=== PATIENT | female | born 1995 | race Caucasian/White ===

== ENCOUNTER 2020-01-06 16:54 | Emergency (ER) | payer OTHER ==
--- NOTE | 2020-01-06 17:47 | ER Document Report ---
ED Medical Screen (RME) - General Stated Complaint: VAGINAL BLEEDING/POS PREG Time Seen by Provider: 01/06/20 17:39 Mode of Arrival: Ambulatory Information source: Patient Notes: HPI; 24-year-old female who states she is unsure of how far along complaining of vaginal spotting for the past 5 days. States she saw her VISITING PROFESSOR on December 26 confirmed with ultrasound but was told there was no heartbeat. She has not followed up since because they were giving her options to what to do about the that she was not happy with. She is a 1. LMP 10/04/2019 denies any abdominal pain. States the spotting is intermittent. PE: Alert and oriented x3, no acute distress, lungs clear to auscultation without rales, rhonchi, or wheezes. Heart: Regular rate rhythm without murmurs, rubs, gallops. Abdomen: Soft, nontender, no guarding, no rebound, no organomegaly, positive bowel sounds x4. I have greeted and performed a rapid initial assessment of this patient. A comprehensive ED assessment and evaluation of the patient, analysis of test results and completion of the medical decision making process will be conducted by additional ED providers. I have specifically instructed the patient or family members with the patient to immediately return to any nursing staff should anything change in the patient's condition or with their chief complaint. - Related Data Allergies/Adverse Reactions: No Known Allergies Allergy (Verified 01/06/20 17:38) Home Medications: , vit D Past Medical History - Social History Frequency of alcohol use: None Drug Abuse: None Physical Exam - Vital signs Vitals: Temp 98.2 F 01/06/20 16:55 Course - Vital Signs Vital signs: Temp Pulse Resp BP Pulse Ox 98.2 F 86 18 128/69 H 100 01/06/20 16:59 01/06/20 16:59 01/06/20 16:59 01/06/20 16:59 01/06/20 16:59
[2020-01-06 18:03] LABS: ABSOLUTE EOSINOPHILS # (AUTO) 0.2 10^3/uL (0.0-0.6); ABSOLUTE LYMPHOCYTES (AUTO) 2.4 10^3/uL (0.5-4.7); ABSOLUTE MONOCYTES (AUTO) 0.7 10^3/uL (0.1-1.4); ABSOLUTE NEUT (AUTO) 6.3 10^3/uL (1.7-8.2); BASOPHILS % (AUTO) 0.5 % (0-2); EOSINOPHILS % (AUTO) 2.2 % (0-6); HEMATOCRIT 40.9 % (36.0-47.0); HEMOGLOBIN 14.3 g/dL (12.0-15.5); LYMPHOCYTES % (AUTO) 24.4 % (13-45); MEAN CORPUSCULAR HEMOGLOBIN 31.5 pg (27.0-33.4); MEAN CORPUSCULAR HGB CONC 34.9 g/dL (32.0-36.0); MEAN CORPUSCULAR VOLUME 90 fl (80-97); MONOCYTES % (AUTO) 7.2 % (3-13); PLATELET COUNT 318 10^3/uL (150-450); RED BLOOD COUNT 4.53 10^6/uL (3.72-5.28); RED CELL DISTRIBUTION WIDTH 13.3 % (11.5-14.0); SEGMENTED NEUTROPHILS % (AUTO) 65.7 % (42-78); TOTAL CELLS COUNTED % (AUTO) 100 %; WHITE BLOOD COUNT 9.7 10^3/uL (4.0-10.5)
[2020-01-06 18:07] LABS: APPEARANCE,URINE CLEAR; BILIRUBIN,URINE NEGATIVE (NEGATIVE); COLOR,URINE STRAW; GLUCOSE, URINE NEGATIVE (NEGATIVE); KETONES,URINE NEGATIVE (NEGATIVE); LEUKOCYTE ESTERASE,URINE TRACE (NEGATIVE); NITRITE,URINE NEGATIVE (NEGATIVE); PROTEIN,URINE NEGATIVE (NEGATIVE); URINE SPECIFIC GRAVITY 1.009; UROBILINOGEN,URINE NEGATIVE mg/dL (<2.0)
[2020-01-06 18:25] LABS: ALBUMIN 4.9 g/dL (3.5-5.0); ALKALINE PHOSPHATASE 59 U/L (38-126); ANION GAP 10 (5-19); ASPARTATE AMINO TRANSFERASE 29 U/L (14-36); BILIRUBIN,TOTAL 0.4 mg/dL (0.2-1.3); BLOOD UREA NITROGEN 6 mg/dL (7-20); CALCIUM 9.8 mg/dL (8.4-10.2); CARBON DIOXIDE 26 mmol/L (22-30); CHLORIDE 101 mmol/L (98-107); GLUCOSE 84 mg/dL (75-110); POTASSIUM 3.8 mmol/L (3.6-5.0); TOTAL PROTEIN 8.1 g/dL (6.3-8.2)
--- NOTE | 2020-01-06 19:06 | ER Document Report ---
ED General - General Chief Complaint: Vag Bleeding, +preg <12wks Stated Complaint: VAGINAL BLEEDING/POS PREG Time Seen by Provider: 01/06/20 17:39 Primary Care Provider: NADIR ZARAGOZA MD [ACTIVE PROVISIONAL STAFF] - Follow up as needed Mode of Arrival: Ambulatory Information source: Patient TRAVEL OUTSIDE OF THE [place] IN LAST 30 DAYS: No - HPI Onset: Other - over the last 4 days Onset/Duration: Gradual Quality of pain: No pain Severity: Mild Pain Level: Denies Associated symptoms: Other - vaginal bleeding/spotting Exacerbated by: Denies Relieved by: Denies Similar symptoms previously: No Recently seen / treated by doctor: No Notes: 24 year old female who is about 10 weeks by ultrasound ([place] here in the ER for vaginal bleeding/spotting for the last 4 days. The patient denies abdominal pains, pelvic pains, nausea, vomiting, fevers, chills, sweats. The patient tells me she had an ultrasound 2 weeks ago and was told she was 8 weeks then but that no heart beat could be seen. The patient has not followed up since then. - Related Data Allergies/Adverse Reactions: No Known Allergies Allergy (Verified 01/06/20 17:38) Home Medications: , vit D Past Medical History - General Information source: Patient - Social History Smoking Status: Never Smoker Frequency of alcohol use: None Drug Abuse: None Lives with: Spouse/Significant other Family History: Reviewed & Not Pertinent Patient has suicidal ideation: No Patient has homicidal ideation: No Review of Systems - Review of Systems Constitutional: No symptoms reported EENT: No symptoms reported Cardiovascular: No symptoms reported Respiratory: No symptoms reported Gastrointestinal: No symptoms reported Genitourinary: No symptoms reported Female Genitourinary: No symptoms reported, , Vaginal bleeding Musculoskeletal: No symptoms reported Skin: No symptoms reported Hematologic/Lymphatic: No symptoms reported Neurological/Psychological: No symptoms reported -: Yes All other systems reviewed and negative Physical Exam - Vital signs Vitals: Temp 98.2 F 01/06/20 16:55 - Notes Notes: GENERAL: Well-appearing, well-nourished and in no acute distress. HEAD: Atraumatic, normocephalic. EYES: Pupils equal round and reactive to light, extraocular movements intact, sclera anicteric, conjunctiva are normal. ENT: External ears normal, nares patent, oropharynx clear without exudates. Moist mucous membranes. NECK: Normal range of motion, supple without lymphadenopathy or JVD. LUNGS: Breath sounds clear to auscultation bilaterally and equal. No wheezes rales or rhonchi. HEART: Regular rate and rhythm without murmurs, rubs or gallops. ABDOMEN: Soft, nontender, normoactive bowel sounds. No guarding, no rebound. No masses appreciated. : Os closed but there is blood and mucus like material coming from Os. No CMT or adenexal tenderness EXTREMITIES: Normal range of motion, no pitting or edema. No clubbing or cyanosis. NEUROLOGICAL: Cranial nerves II through XII grossly intact. Normal speech, normal gait. PSYCH: Normal mood, normal affect. SKIN: Warm, Dry, normal turgor, no rashes or lesions noted. Course - Re-evaluation Re-evalutation: 01/06/20 19:11 Patient's Beta HCG is 3939 which does not correlate with bring 10 weeks . Patient's US here in the ER shows possible at 8 weeks and 3 days but no heart beats seen. US is concerning for impending miscarriage according to radiology. Patient informed she needs to follow up with an FAMILY DEVELOPMENT EXTENSION SPECIALIST D octor this week for repeat Beta HCG. Patient does not need Rhogam based on lab values. - Vital Signs Vital signs: Temp Pulse Resp BP Pulse Ox 98.2 F 86 18 128/69 H 100 01/06/20 16:59 01/06/20 16:59 01/06/20 16:59 01/06/20 16:59 01/06/20 16:59 - Laboratory Result Diagrams: 01/06/20 17:50 01/06/20 17:50 Laboratory results interpreted by me: 01/06/20 01/06/20 17:50 17:50 Sodium 136.6 L BUN 6 L Beta HCG, Quant 3939.60 H Urine Blood MODERATE H Ur Leukocyte Esterase TRACE H Discharge - Discharge Clinical Impression: Threatened Condition: Stable Disposition: HOME, SELF-CARE Instructions: Bleeding During Early ([facility]), Threatened Miscarriage ([facility]), Threatened Abortions ( Patients) Additional Instructions: Follow up with your FAMILY DEVELOPMENT EXTENSION SPECIALIST doctor, the FAMILY DEVELOPMENT EXTENSION SPECIALIST Doctor provided in your discharge paperwork, or another FAMILY DEVELOPMENT EXTENSION SPECIALIST Doctor of your choosing in the next 2-3 days to have a repeat Beta HCG (lab test). Your Beta HCG in the ER today was 3939. Your ultrasound shows a possible at 8 weeks and 3 days with no heart beat. Referrals: NADIR ZARAGOZA MD [ACTIVE PROVISIONAL STAFF] - Follow up as needed
[2020-01-06 19:20] LABS: RBCS (WET MOUNT) 4+ RBCS SEEN; T.VAGINALIS (WET MOUNT) NO TRICHOMONAS SEEN; WBCS (WET MOUNT) 2+ WBCS SEEN; YEAST (WET MOUNT) NO YEAST SEEN
[2020-01-06 19:21] LABS: BACTERIA (WET MOUNT) 4+ BACTERIA SEEN; EPITHELIALS (WET MOUNT) 4+ EPITHELIALS SEEN
--- NOTE | 2020-01-06 20:07 | RADIOLOGY REPORT (SQ) ---
EXAM DESCRIPTION: U/S OB TRANSVAG W/DOPPLER IMAGES COMPLETED DATE/TIME: 01/06/2020 7:56 pm REASON FOR STUDY: bleeding COMPARISON: None. TECHNIQUE: Transvaginal static and realtime grayscale images acquired of the pelvis. Additional jose cted spectral and color Doppler images recorded. All images stored on PACs. [id number] CLINICAL DATES: LMP 10/27/2019 8 weeks 3 days. LIMITATIONS: None. FINDINGS: FETUS: Single Living intrauterine . ULTRASOUND EGA: 8 weeks 3 days. ULTRASOUND KARI: 08/14/2020 EFW: Not applicable less than 20 weeks. CRL: 1.9 cm FHR: Cardiac activity is not seen. SURVEY: Too early to assess. AMNIOTIC FLUID: Adequate amount. PLACENTA: Not yet developed due to early gestation. SUBCHORIONIC BLEED: No SIZE OF BLEED: Not applicable. UTERUS: No masses. No anomalies. CERVICAL LENGTH: 3.2 cm. Closed. RIGHT ADNEXA: Normal ovary with normal vascular flow. 2.7 x 1.8 x 2.1 cm. No adnexal free fluid. No adnexal masses. LEFT ADNEXA: Normal ovary with normal vascular flow. 3.9 x 1.7 x 3.4 cm. 2.8 x 1 x 2.2 cm corpus debra teum. No adnexal free fluid. No adnexal masses. FREE FLUID: None. OTHER: No other significant finding. IMPRESSION: There is an intrauterine gestation of 8 weeks 3 days. HEART MOTION IS NOT SEEN. Likely impending miscarriage. Correlate clinically. Follow-up as clinically indicated. Trimester of : First trimester - 0 to 13 weeks. TECHNICAL DOCUMENTATION: JOB ID: [id number] [employer]- All Rights Reserved rev Reading location - IP/workstation name: [email or web address]
[2020-01-06 20:51] LABS: CHLAM PCR NOT DETECTED (NOT DETECT)
[2020-01-06 21:17] VITALS: BP 118/61
== END 2020-01-06 21:18 | disposition home or self-care (01) ==
LOC: ER 16:54
DX: O20.0 Threatened abortion (principal); O20.9 Hemorrhage in early pregnancy, unspecified; Z3A.10 10 weeks gestation of pregnancy
CPT/HCPCS: 36415; 76817; 80053; 81001; 84702; 85025; 86900; 86901; 87210; 87491; 87591; 93976; 99284

== ENCOUNTER 2020-01-22 10:55 | Emergency (ER) | payer OTHER ==
[2020-01-22] MEDS ORDERED: ACETAMINOPHEN 325 MG TABLET PO ONE (11:23)
--- NOTE | 2020-01-22 11:25 | ER Document Report ---
ED Medical Screen (RME) - General Chief Complaint: Headache Stated Complaint: ABDOMINAL CRAMPING/MIGRANE POST MISCARRIAGE Time Seen by Provider: 01/22/20 11:07 Mode of Arrival: Ambulatory Notes: HPI; 22-year-old female no previous medical problems presents to the emergency room complaining of a headache for the past 4 days left lower quadrant pain that radiates to her flank area with spotting started 2 days ago. Patient states she had a complete miscarriage 2 weeks ago follow-up ultrasound show no products of conception. States tried make an appointment with her BRUSH CUTTER this morning and was referred to the emergency room. States she has been sexually active with no use of control since the miscarriage 2 weeks ago. Denies any nausea, vomiting, does complain of urinary frequency but denies burning. PE: Alert and oriented x3. Mild distress noted. Lungs clear to auscultation without rales rhonchi wheezes. Heart regular rate rhythm without murmurs rubs or gallops. Abdomen soft nontender. Bowel sounds x4. Positive for left CVA tenderness. I have greeted and performed a rapid initial assessment of this patient. A comprehensive ED assessment and evaluation of the patient, analysis of test r esults and completion of the medical decision making process will be conducted by additional ED providers. I have specifically instructed the patient or family members with the patient to immediately return to any nursing staff should anything change in the patient's condition or with their chief complaint. TRAVEL OUTSIDE OF THE [place] IN LAST 30 DAYS: No - Related Data Allergies/Adverse Reactions: No Known Allergies Allergy (Verified 01/22/20 11:06) Past Medical History - Social History Chew tobacco use (# tins/day): No Frequency of alcohol use: Occasional Drug Abuse: None Physical Exam - Vital signs Vitals: Temp Pulse Resp BP Pulse Ox 98.5 F 99 16 143/82 H 100 01/22/20 11:04 01/22/20 11:04 01/22/20 11:04 01/22/20 11:04 01/22/20 11:04 Course - Vital Signs Vital signs: Temp Pulse Resp BP Pulse Ox 98.5 F 99 16 143/82 H 100 01/22/20 11:06 01/22/20 11:04 01/22/20 11:04 01/22/20 11:04 01/22/20 11:04
[2020-01-22 11:46] LABS: APPEARANCE,URINE CLEAR; BILIRUBIN,URINE NEGATIVE (NEGATIVE); COLOR,URINE STRAW; GLUCOSE, URINE NEGATIVE (NEGATIVE); KETONES,URINE NEGATIVE (NEGATIVE); LEUKOCYTE ESTERASE,URINE TRACE (NEGATIVE); NITRITE,URINE NEGATIVE (NEGATIVE); PROTEIN,URINE 30 mg/dL (NEGATIVE); URINE SPECIFIC GRAVITY 1.009; UROBILINOGEN,URINE NEGATIVE mg/dL (<2.0)
[2020-01-22 11:48] LABS: ABSOLUTE EOSINOPHILS # (AUTO) 0.2 10^3/uL (0.0-0.6); ABSOLUTE LYMPHOCYTES (AUTO) 2.2 10^3/uL (0.5-4.7); ABSOLUTE MONOCYTES (AUTO) 0.7 10^3/uL (0.1-1.4); BASOPHILS % (AUTO) 0.2 % (0-2); EOSINOPHILS % (AUTO) 1.6 % (0-6); HEMATOCRIT 38.3 % (36.0-47.0); HEMOGLOBIN 13.3 g/dL (12.0-15.5); LYMPHOCYTES % (AUTO) 21.6 % (13-45); MEAN CORPUSCULAR HEMOGLOBIN 31.5 pg (27.0-33.4); MEAN CORPUSCULAR HGB CONC 34.6 g/dL (32.0-36.0); MEAN CORPUSCULAR VOLUME 91 fl (80-97); MONOCYTES % (AUTO) 7.3 % (3-13); PLATELET COUNT 290 10^3/uL (150-450); RED BLOOD COUNT 4.21 10^6/uL (3.72-5.28); RED CELL DISTRIBUTION WIDTH 12.8 % (11.5-14.0); SEGMENTED NEUTROPHILS % (AUTO) 69.3 % (42-78); TOTAL CELLS COUNTED % (AUTO) 100 %
[2020-01-22 12:03] LABS: ALBUMIN 4.7 g/dL (3.5-5.0); ALKALINE PHOSPHATASE 66 U/L (38-126); ANION GAP 8 (5-19); ASPARTATE AMINO TRANSFERASE 22 U/L (14-36); BILIRUBIN,TOTAL 0.6 mg/dL (0.2-1.3); BLOOD UREA NITROGEN 7 mg/dL (7-20); CARBON DIOXIDE 29 mmol/L (22-30); CHLORIDE 103 mmol/L (98-107); GLUCOSE 87 mg/dL (75-110); POTASSIUM 4.5 mmol/L (3.6-5.0); TOTAL PROTEIN 7.6 g/dL (6.3-8.2)
--- NOTE | 2020-01-22 12:12 | ER Document Report ---
ED General - General Chief Complaint: Headache Stated Complaint: ABDOMINAL CRAMPING/MIGRANE POST MISCARRIAGE Time Seen by Provider: 01/22/20 11:07 Mode of Arrival: Ambulatory Information source: Patient TRAVEL OUTSIDE OF THE [place] IN LAST 30 DAYS: No - HPI Notes: Patient presents complaining of headache and lower abdominal pain. The lower abdominal pain is in the lower left quadrant and radiates to the left back. It is intermittent. It is mild to moderate. It is crampy sensation. Nothing makes it better or worse. She states that she had a spontaneous miscarriage approximately 2 weeks ago. This was after being 8 weeks . She states several days after the miscarriage she felt better then 4 to 5 days ago she began to get intermittent headaches. And then starting yesterday she began to have some left lower quadrant abdominal pain as above. She is also had some spotting on and off but no clots or heavy bleeding. She states she called the nurse helpline and they referred her to the emergency department. No fevers. - Related Data Allergies/Adverse Reactions: No Known Allergies Allergy (Verified 01/22/20 11:06) Past Medical History - General Information source: Patient - Social History Smoking Status: Never Smoker Chew tobacco use (# tins/day): No Frequency of alcohol use: Occasional Drug Abuse: None Family History: Reviewed & Not Pertinent Patient has homicidal ideation: No Review of Systems - Review of Systems Constitutional: denies: Chills, Fever Cardiovascular: denies: Chest pain, Palpitations Respiratory: denies: Cough, Short of breath -: Yes All other systems reviewed and negative Physical Exam - Vital signs Vitals: Temp Pulse Resp BP Pulse Ox 98.5 F 99 16 143/82 H 100 01/22/20 11:04 01/22/20 11:04 01/22/20 11:04 01/22/20 11:04 01/22/20 11:04 Interpretation: Normal - General General appearance: Appears well, Alert - HEENT Head: Normocephalic, Atraumatic Eyes: Normal Pupils: PERRL - Respiratory Respiratory status: No respiratory distress Chest status: Nontender Breath sounds: Normal Chest palpation: Normal - Cardiovascular Rhythm: Regular Heart sounds: Normal auscultation Murmur: No - Abdominal Inspection: Normal Distension: No distension Bowel sounds: Normal Tenderness: Nontender Organomegaly: No organomegaly - Back Back: Normal, Nontender - Extremities General upper extremity: Normal inspection, Nontender, Normal color, Normal ROM, Normal temperature General lower extremity: Normal inspection, Nontender, Normal color, Normal ROM, Normal temperature, Normal weight bearing. No: Manuela's sign - Neurological Neuro grossly intact: Yes Cognition: Normal Orientation: AAOx4 Clint Coma Scale Eye Opening: Spontaneous Hodan Coma Scale Verbal: Oriented Clint Coma Scale Motor: Obeys Commands Hodan Coma Scale Total: 15 Speech: Normal Motor strength normal: LUE, RUE, LLE, RLE Sensory: Normal - Psychological Associated symptoms: Normal affect, Normal mood - Skin Skin Temperature: Warm Skin Moisture: Dry Skin Color: Normal Course - Re-evaluation Re-evalutation: 01/22/20 13:39 Patient has an ultrasound without any evidence of retained products. Patient does not appear toxic and has stable vital signs. She has an equivocal urine she will place patient on antibiotics and have her follow-up with her primary care physician. - Vital Signs Vital signs: Temp Pulse Resp BP Pulse Ox 98.5 F 99 16 143/82 H 100 01/22/20 11:06 01/22/20 11:04 01/22/20 11:04 01/22/20 11:04 01/22/20 11:04 - Laboratory Result Diagrams: 01/22/20 11:30 01/22/20 11:30 Laboratory results interpreted by me: 01/22/20 01/22/20 11:30 11:30 Beta HCG, Quant 24.08 H Urine Protein 30 H Urine Blood SMALL H Ur Leukocyte Esterase TRACE H - Diagnostic Test Radiology reviewed: Image reviewed, Reports reviewed Discharge - Discharge Clinical Impression: UTI (urinary tract infection) Qualifiers: Urinary tract infection type: acute cystitis Hematuria presence: without hematuria Qualified Code(s): N30.00 - Acute cystitis without hematuria Condition: Stable Disposition: HOME, SELF-CARE Instructions: Urinary Tract Infection ([facility]) Additional Instructions: Please follow-up with your INTERMEDIATE PROJECT MANAGER as soon as possible Prescriptions: Cefdinir 300 mg PO BID 7 Days #14 capsule Tramadol HCl [Ultram] 50 mg PO Q6 PRN 3 Days #12 tablet PRN Reason: Forms: Return to Work
--- NOTE | 2020-01-22 13:23 | RADIOLOGY REPORT (SQ) ---
EXAM DESCRIPTION: U/S OB TRANSVAGINAL W/O DOP IMAGES COMPLETED DATE/TIME: 01/22/2020 12:41 pm REASON FOR STUDY: recent miscarriage/?retained products/has pain COMPARISON: None. TECHNIQUE: Transvaginal static and realtime grayscale images acquired of the pelvis. Additional jose cted spectral and color Doppler images recorded. All images stored on PACs. bHCG: Not available. CLINICAL DATES: KARI: 07/10/2020. EGA: 15 weeks 5 days. LIMITATIONS: None. FINDINGS: FETUS: No Living intrauterine . The patient has a history of recent miscarriage . UTERUS: The uterus measures 7.3 x 3.6 x 4.3 cm. The endometrial stripe measures 1.1 cm. No evidenc e of retained products within the endometrial cavity by ultrasound examination. CERVICAL LENGTH: The cervix measures 2.8 cm. Small amount of fluid within the cervix. Closed. RIGHT ADNEXA: The right over measures 2.6 x 3.4 x 2.2 cm. Normal ovary with normal vascular flow. No adnexal free fluid. No adnexal masses. LEFT ADNEXA: The left ovary measures 3.3 x 2.2 x 1.6 cm. Normal ovary with normal vascular flow. No adnexal free fluid. No adnexal masses. FREE FLUID: Small volume of fluid in the posterior cul-de-sac. OTHER: No other significant finding. IMPRESSION: 1. No evidence of LIVING INTRAUTERINE . 2. The patient has a history of recent miscarriage. No evidence of retained products identified by ultrasound examination. 3. Small amount of free fluid in the posterior cul-de-sac. Trace fluid wit h in the visualized cervix. TECHNICAL DOCUMENTATION: JOB ID: [id number] 2010 [employer]- All Rights Reserved rev Reading location - IP/workstation name: [email or web address]
[2020-01-22] MEDS ORDERED: ACETAMINOPHEN 325 MG TABLET ONE (13:26)
[2020-01-22 14:10] VITALS: BP 118/79
== END 2020-01-22 14:00 | disposition home or self-care (01) ==
LOC: ER 10:55
DX: N30.00 Acute cystitis without hematuria (principal); R51 Headache; R10.32 Left lower quadrant pain; Z87.59 Personal history of other complications of pregnancy, childbirth and the puerperium
CPT/HCPCS: 36415; 76817; 80053; 81001; 84702; 85025; 99284